=== PATIENT | female | born 1975 | race Hispanic/Latino ===

== ENCOUNTER 2022-10-11 22:28 | Emergency (ER) | payer OTHER ==
--- OUTSIDE RECORDS SUMMARY | 2022-10-11 22:31 | XMS REPORT | Continuity of Care Document ---
:1975 Author Organization [facility] t Address [address] [facility] [address] [place] [address] Care Team Providers Name Role Phone Juancarlos Solomon Primary Care Physician Melvin Dietz Attending Clinician Unavailable RADIOLOGY Attending Clinician Unavailable Radiology Attending Clinician Unavailable Luis E Barnard APRN Attending Clinician DORA COTO Admitting Clinician Unavailable Payers Payer Name Policy Type Policy Number Effective Date Expiration Date S ource GENERIC [id number] 2022 MEDICARE 00:00:00 MANAGED C[facility] [id number] 2021 [facility] 00:00:00 - [facility] Problems Condition Condition Condition Status Onset Resolution Last Treating Co mments Source Name Details Category Date Date Treatment Clinician Date Bilateral Bilateral Disease Active Last [place] primary primary -23 [facility] osteoarthr osteoarthr 00:00: t & Plan: itis of itis of 00 Formattin knee knee g of this note might be different from the original. Patient continues to have a little bit of discomfor t especiall y when she stopped doing her exercises . Patient was encourage d to continue on her home exercise program as it is going to take a while to rebuild the strength. We did discuss conservat thaddeus treatment measures like injection s but will hold off for now as she feels like she is improving and going in the right direction . [id number] High blood Problem Com mon cholestero Spirit l - [facility] [id number] Body mass Problem Com mon index Spirit [BMI] - [facility] 30.0-30.9, [facility] [id number] Other Problem Common obesity Spirit due to - [facility] excess [facility] No known No known Disease Unive rs active active ity of problems problems [facility] Allergies, Adverse Reactions, Alerts Allergy Allergy Status Severity Reaction(s) Onset Inactive Treating Comm ents Source Name Type Date Date Clinician NO KNOWN Drug Active Univers ALLERGIE Class ity of S [facility] Social History Social Habit Start Date Stop Date Quantity Comments Source History of Tobacco [facility] - Use [facility] Exposure to 2022-08-04 2022-08-14 Not sure [facility] SARS-CoV-2 (event) 00:00:00 08:58:00 Sex Ass[birth year] [facility] 00:00:00 00:00:00 Smoking Status Start Date Stop Date Source Tobacco smoking consumption AL H ealth unknown Never Smoker [facility] - [facility] Medications Ordered Filled Start Stop Current Ordering Indication Dosage Frequency Signature Comments Components Source Medication Medication Date Date Medication? Clinician (SIG) Name Name cyclobenzap Yes [id number] 5mg Take 1 Univers rine 5 mg 3-17 tablet by ity o f tablet 00:00: mouth 3 (three) Medical times Branch daily. traMADOL Yes [id number] 50mg Take 1 Un paul (ULTRAM) 50 3-17 tablet by ity of mg tablet 00:00: mouth [place] 00 every 6 Medical (six) Branch hours as needed for Pain (scale 4-6). cyclobenzap Yes [id number] 5mg Take 1 Univers rine 5 mg 3-17 tablet by ity o f tablet 00:00: mouth 3 00 (three) Medical times Branch daily. traMADOL Yes [id number] 50mg Take 1 Un paul (ULTRAM) 50 3-17 tablet by ity of mg tablet 00:00: mouth 00 every 6 Medical (six) Branch hours as needed for Pain (scale 4-6). cyclobenzap 2018- Yes [id number] 5mg Take 1 Univers rine 5 mg 3-17 tablet by ity o f tablet 00:00: mouth 3 00 (three) Medical times Branch daily. traMADOL Yes [id number] 50mg Take 1 Un paul (ULTRAM) 50 3-17 tablet by ity of mg tablet 00:00: mouth [place] 00 every 6 Medical (six) Branch hours as needed for Pain (scale 4-6). Vital Signs Vital Name Observation Time Observation Value Comments Source Body height 2022-06-10 22:31:00 149[facility]9 [facility] weight 2022-06-10 22:31:00 68.04 kg [facility] BMI 2022-06-10 22:31:00 30.30 kg/m2 [facility] height 2022-03-11 10:00:00 60 [in_i] [facility] weight 2022-03-11 10:00:00 154 [lb_av] [facility] bmi 2022-03-11 10:00:00 30.07 kg/m2 [facility] height 2022-02-10 16:20:00 60 [in_i] [facility] weight 2022-02-10 16:20:00 153.7 [lb_av] [facility] temperature 2022-02-10 16:20:00 97.6 [degF] [facility] bmi 2022-02-10 16:20:00 30.01 kg/m2 [facility] oximetry 2022-02-10 16:20:00 99 % [facility] respiratory rate 2022-02-10 16:20:00 18 /min Comm on [facility] blood pressure 2022-02-10 16:20:00 113 mm[Hg] [facility] - systolic [facility] blood pressure 2022-02-10 16:20:00 70 mm[Hg] [facility] - diastolic [facility] Procedures Procedure Date / Time Performing Clinician Source Performed BI ULTRASOUND BREAST 2022-08-26 20:09:11 Requisition, [facility] COMPLETE RIGHT Medical Branch CONSENT/REFUSAL FOR 2022-08-26 19:20:41 Doctor Unassigned, [facility] DIAGNOSIS AND TREATMENT [facility] ASSIGNMENT OF BENEFITS 2022-08-26 19:20:20 Doctor Unassigned, [facility] [[email or web address] PATIENT FINANCIAL 2022-04-03 18:37:46 Doctor Unassigned, Un [facility] POLICY [facility] NO SHOW OR MISSED 2022-04-03 18:36:59 Doctor Unassigned, [facility] APPOINTMENT POLICY [facility] ACKNOWLEDGEMENT NOTICE OF PRIVACY 2022-04-03 18:36:42 Doctor Unassigned, [facility] PRACTICES [facility] CONSENT/REFUSAL FOR 2022-04-03 18:36:28 Doctor Unassigned, [facility] DIAGNOSIS AND TREATMENT [facility] ASSIGNMENT OF BENEFITS 2022-04-03 18:36:13 Doctor Unassigned, [facility] Encounters Start End Encounter Admission Attending Care Care Encounter Source Date/Time Date/Time Type Type Clinicians Facility Department ID 2022-08-25 Outpatient Dietz, STJOSE [facility] [id number] Common 12:07:02 [facility] [id number] [facility] 2022-06-10 Outpatient [facility] [id number] [place] 15:44:33 [id number] [facility] 2022-06-09 Outpatient [facility] [id number] [place] 11:18:23 [id number] [facility] 2022-06-01 Outpatient [facility] [id number] [place] 09:14:05 [id number] [facility] 2022-03-10 Outpatient Dietz, [facility] [id number] Common 08:40:02 [facility] 2022-02-10 Outpatient Dietz, [facility] [id number] Common 16:10:02 [facility] 2022-08-26 2022-08-26 Hospital Radiology [facility] [[email or web address]] [id number] [id number] Univers 14:24:48 23:59:00 Encounter [place] [id number] ity of [place] [id number] [facility] [id number] [facility] [address] Branch 2022-08-26 2022-08-26 Outpatient R RADIOLOGY [facility] [[email or web address]] RAD [id number] Univers 14:24:34 23:59:00 ity of [facility] 2022-08-26 2022-08-26 Hospital Radiology [facility] [[email or web address]] [id number] Univers 14:24:34 23:59:00 Encounter [place] [id number] ity of [place] 4.2.7.2.686 [facility] [id number] [facility] 806 Branch 2022-08-14 2022-08-14 Office Manolokarely [facility] [id number] [place] 09:15:00 10:27:16 Visit Luis E [place] 350.1.13.58 [facility] [id number] [place] [id number] 2022-07-22 2022-07-22 Outpatient [facility] [id number] [place] 09:45:00 09:45:00 [facility] 2022-06-10 2022-06-10 Outpatient [facility] [id number] [place] 16:00:00 17:01:52 [facility] 2022-06-10 2022-06-10 Office Akil [facility] [id number] [place] 16:00:00 17:01:37 Visit Luis E GAUTAMEZEQUIEL 350.1.13.58 H [facility] 9.2.7.2.686 [place] [address] [id number] 2022-04-03 2022-04-03 Outpatient R RADIOLOGY [facility] [id number] Univers 12:38:54 23:59:00 ity of [facility] 2022-04-03 2022-04-03 Hospital Radiology [facility] [[email or web address]] [id number] Univers 12:38:54 23:59:00 Encounter [place] [id number] ity of [place] [id number] [facility] [id number] [facility] rolly 800 Branch 2022-03-11 2022-03-[address] [facility] [id number] Co mmon 00:00:00 00:00:00 VISIT EST Spir it PT LEVEL 3 - [facility] 2022-02-10 2022-02-[address] [facility] [id number] Common 00:00:00 00:00:00 NEW AGE [facility] 40-64 - [facility] Results This patient has no known results.
[2022-10-11] MEDS ORDERED: HYDROCOD 2.5mg-ACETAMIN 108mg/5mL Soln ONE (23:04)
--- NOTE | 2022-10-11 23:59 | EDPHYS ---
Physician Documentation [facility] Name: Martita Elkins Age: 47 yrs Sex: Female : 1975 Arrival Date: 10/11/2022 Time: 22:28 Bed IW1 Private MD: ED Physician Goldy Arredondo HPI: 10/11 23:00 This 47 yrs old Female presents to ER via Ambulatory with complaints of Sore cp Throat. 23:00 The patient presents with sore throat. The patient describes throat pain as scratchy, cp right side worse than left with pain radiating to upper chest. 23:00 Onset: The symptoms/episode began/occurred 2 day(s) ago. Severity of symptoms: in the emergency department the symptoms are unchanged, despite home interventions. Associated signs and symptoms: Pertinent negatives cough, dysphagia, fever, flu-like symptoms. Historical: - Allergies: 22:40 No Known Allergies; kl - Home Meds: 22:40 None [Active]; kl - PMHx: 22:40 None; kl - PSHx: 22:40 None; kl - Immunization history:: Adult Immunizations not up to date. - Social history:: Smoking status: Patient denies any tobacco usage or history of. ROS: 23:05 Constitutional: Negative for cp 23:05 Eyes: Negative for injury, pain, redness, and discharge. cp 23:05 ENT: Positive for sore throat, Negative for drainage from ear(s), ear pain, difficulty swallowing, difficulty handling secretions. 23:05 Respiratory: Negative for cough, shortness of breath, wheezing. 23:05 Abdomen/GI: Negative for abdominal pain, vomiting, diarrhea, constipation. 23:05 Neuro: Negative for altered mental status, headache, weakness. 23:05 All other systems are negative. Exam: 23:10 Constitutional: The patient appears in no acute distress, alert, awake, non-toxic, well cp developed, well nourished, uncomfortable. 23:10 Head/Face: Normocephalic, atraumatic. cp 23:10 Eyes: Periorbital structures: appear normal, Conjunctiva: normal, no exudate, no injection, Sclera: no appreciated abnormality, Lids and lashes: appear normal, bilaterally. 23:10 ENT: External ear(s): are unremarkable, Ear canal(s): are normal, clear, TM's: dullness, bilaterally, Nose: is normal, Mouth: Lips: moist, Oral mucosa: pink and intact, moist, Posterior pharynx: Airway: no evidence of obstruction, patent, Tonsils: with erythema, no enlargement, no exudate, swelling, is not appreciated, erythema, that is mild, exudate, is not appreciated. 23:10 Neck: ROM/movement: is normal, is supple, without pain, no range of motions limitations, no meningismus, no nuchal rigidity, Lymph nodes: lymphadenopathy is appreciated, anterior cervical nodes. 23:10 Chest/axilla: Inspection: normal. 23:10 Cardiovascular: Rate: normal, Rhythm: regular. 23:10 Respiratory: the patient does not display signs of respiratory distress, Respirations: normal, no use of accessory muscles, no retractions, labored breathing, is not present, Breath sounds: are clear throughout, no decreased breath sounds, no stridor, no wheezing. 23:10 Abdomen/GI: Exam negative for discomfort, distension, guarding, Inspection: abdomen appears normal. Vital Signs: 22:37 BP 123 / 88; Pulse 78; Resp 20; Temp 98(TE); Pulse Ox 100% on R/A; Weight 70.76 kg (R); Height 4 ft. 11 in. ; Pain 0/10; 10/12 00:08 Pulse 72; Resp 18; Pulse Ox 100% on R/A; kl 10/11 22:37 Body Mass Index 31.51 (70.76 kg, 149.86 cm) 10/11 22:37 Pain Scale: Adult [facility]: 10/11 22:48 Patient medically screened. 23:10 Differential diagnosis: apthous stomatitis, apthous ulcer, group A strep tonsillitis, cp barbara's angina, mononucleosis, peritonsillar abscess pharyngitis, retropharyngeal abcess. 23:58 Data reviewed: vital signs, nurses notes, lab test result(s). 23:58 I considered the following discharge prescriptions or medication management in the emergency department Medications were administered in the Emergency Department. See MAR. Counseling: I had a detailed discussion with the patient and/or guardian regarding: the historical points, exam findings, and any diagnostic results supporting the discharge/admit diagnosis, lab results, to return to the emergency department if symptoms worsen or persist or if there are any questions or concerns that arise at home. Response to treatment: the patient's symptoms have markedly improved after treatment, and as a result, I will discharge patient. 10/11 22:48 Order name: Strep; Complete Time: 23:35 cp 10/11 23:35 Interpretation: Reviewed. cp 10/11 23:37 Order name: Throat Culture EDMS Administered Medications: 23:01 CANCELLED (Other Intervention Used): GI Cocktail without - (Maalox PO kl Suspension 30 ml, Lidocaine Mucous Membrane Liquid 2 % 15 ml) PO once 23:01 Drug: Lortab PO Liquid 10 ml Route: PO; kali 10/12 00:07 Follow up: Response: No adverse reaction; Marked relief of symptoms kl Disposition Summary: 10/11/22 23:59 Discharge Ordered Location: Home cp Problem: new cp Symptoms: have improved cp Condition: Stable cp Diagnosis - Acute pharyngitis, unspecified cp Followup: cp - With: Private Physician - When: 2 - 3 days - Reason: Recheck today's complaints Discharge Instructions: - Discharge Summary Sheet cp - Pharyngitis cp - Sore Throat cp Forms: - Medication Reconciliation Form cp - Thank You Letter cp - Antibiotic Education cp - Prescription Opioid Use cp Prescriptions: - Lidocaine Viscous - take 5 milliliter by ORAL route every 4-6 hours As needed; 1 unit; Refills: 0, cp Product Selection Permitted - Ibuprofen 800 mg Oral Tablet - take 1 tablet by ORAL route every 8 hours As needed take with food; 30 tablet; cp Refills: 0, Product Selection Permitted Signatures: Dispatcher [employer] EDDE Maria L Torres RN RN Ag Man PA PA cp Corrections: (The following items were deleted from the chart) 10/11 23:01 22:48 GI Cocktail without - (Maalox Suspension 30 ml, Lidocaine Liquid 2 % 15 kl ml;) PO once ordered. cp 10/12 23:47 10/11 22:45 This 47 yrs old Female presents to ER via Ambulatory with cp complaints of Sore Throat. cp 10/12 23:47 10/11 22:45 The patient presents with sore throat, cp cp 10/12 23:47 10/11 22:45 The patient describes throat pain as scratchy, right side worse than left cp with pain radiating to upper chest, cp 10/12 23:49 23:47 Constitutional: Negative for cp cp
--- NOTE | 2022-10-11 23:59 | ER ---
Nurse's Notes [facility] Name: Martita Elkins Age: 47 yrs Sex: Female : 1975 Arrival Date: 10/11/2022 Time: 22:28 Bed IW1 Private MD: Diagnosis: Acute pharyngitis, unspecified Presentation: 10/11 22:37 Chief complaint: Patient states: sore throat since Wednesday pain increasing now radiating kl down to right collarbone with movement reports pain when swallowing. Coronavirus screen: Vaccine status: Patient reports being unvaccinated. Ebola Screen: Patient negative for fever greater than or equal to 101.5 degrees Fahrenheit, and additional compatible Ebola Virus Disease symptoms. Initial Sepsis Screen: Does the patient meet any 2 criteria? No. Patient's initial sepsis screen is negative. Does the patient have a suspected source of infection? No. Patient's initial sepsis screen is negative. Risk Assessment: Do you want to hurt yourself or someone else? Patient reports no desire to harm self or others. 22:37 Method Of Arrival: Ambulatory 22:37 Acuity: [place] 4 kl Triage Assessment: 22:40 General: Appears uncomfortable, Behavior is cooperative. Pain: Complains of pain in kl right aspect of thyroid Pain radiates to right clavicle Pain currently is 0 out of 10 on a pain scale. at worst was 7 out of 10 on a pain scale. 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 Historical: - Allergies: 22:40 No Known Allergies; kl - Home Meds: 22:40 None [Active]; kl - PMHx: 22:40 None; kl - PSHx: 22:40 None; kl - Immunization history:: Adult Immunizations not up to date. - Social history:: Smoking status: Patient denies any tobacco usage or history of. Screenin/26 00:08 [facility] ED Fall Risk Assessment (Adult) History of falling in the last 3 months, kl including since admission No falls in past 3 months (0 pts) Confusion or Disorientation No (0 pts) Intoxicated or Sedated No (0 pts) Impaired Gait No (0 pts) Mobility Assist Device Used No (0 pt) Altered Elimination No (0 pt) Score/Fall Risk Level 0 - 2 = Low Risk Oriented to surroundings, Maintained a safe environment. Abuse screen: Denies threats or abuse. Nutritional screening: No deficits noted. Tuberculosis screening: No symptoms or risk factors identified. Assessment: 00:07 Respiratory: Airway is patent Respiratory effort is even, unlabored, Breath sounds are kl clear bilaterally. EENT: Throat is reddened. Vital Signs: 10/11 22:37 BP 123 / 88; Pulse 78; Resp 20; Temp 98(TE); Pulse Ox 100% on R/A; Weight 70.76 kg (R); kl Height 4 ft. 11 in. ; Pain 0/10; 10/12 00:08 Pulse 72; Resp 18; Pulse Ox 100% on R/A; kl 10/11 22:37 Body Mass Index 31.51 (70.76 kg, 149.86 cm) 10/11 22:37 Pain Scale: Adult ED Course: 10/11 22:32 Patient arrived in ED. [email or web address] 22:35 Ag Melissa PA is PHCP. sekou 22:35 Goldy Arredondo DO is Attending Physician. cp 22:40 Triage completed. 22:59 Strep Sent. 10/12 00:08 Patient has correct armband on for positive identification. 00:09 No provider procedures requiring assistance completed. Patient did not have IV access kl during this emergency room visit. Administered Medications: 10/11 23:01 CANCELLED (Other Intervention Used): GI Cocktail without - (Maalox PO kl Suspension 30 ml, Lidocaine Mucous Membrane Liquid 2 % 15 ml) PO once 23:01 Drug: Lortab PO Liquid 10 ml Route: PO; 10/12 00:07 Follow up: Response: No adverse reaction; Marked relief of symptoms Outcome: 10/11 23:59 Discharge ordered by . cp 10/12 00:08 Discharged to home ambulatory. kl Condition: good Discharge instructions given to patient, Instructed on discharge instructions, follow up and referral plans. medication usage, Demonstrated understanding of instructions, follow-up care, medications, Prescriptions given X 2. 00:09 Patient left the ED. Signatures: Maria L Torres RN RN Ag Man PA PA cp Alexander, Jessica [email or web address]
[2022-10-12 00:20] VITALS: BP 123/88; TEMP 98; O2SAT 100
== END 2022-10-12 00:09 | disposition home or self-care (01) ==
LOC: ER 22:28
DX: J02.9 Acute pharyngitis, unspecified (principal)
CPT/HCPCS: 87070; 87081; 99283